=== PATIENT | male | born 1980 | race Caucasian/White ===

== ENCOUNTER 2016-09-24 19:55 | Emergency (ER) | payer MEDICAID ==
[2016-09-24 21:05] VITALS: BP 130/74
[2016-09-24] MEDS ORDERED: Lidocaine 1% 20 ML MDV INJECT ONE (21:11)
[2016-09-24] MEDS ORDERED: Bacitracin Oint 1 GM U/D Packet TOP ONE (21:11)
--- NOTE | 2016-09-24 21:47 | EDM.PDOC ---
[id number]: CUT LEFT THUMB ON BLADE Time Seen by Provider: 09/24/16 21:20 Source of Information: Reports: Patient History Limitations: Reports: No Limitations - History of Present Illness INITIAL COMMENTS - FREE TEXT/NARRATIVE: 35-year-old male with a left hand laceration from a sharpened lawnmower blade. He has a laceration that starts at the base of the palmar aspect of the thumb over the thenar area and into the center of the hand. Total length of 6 cm. It is through into the subcutaneous tissue but no deep structures are involved. Onset: Today Duration: Hour(s): (Within the last hour) Location: Reports: Upper Extremity, Left Associated Symptoms: Reports: No Other Symptoms Left Hand Pain Score (Numeric/FACES): 4 - Related Data Allergies Allergy/AdvReac Type Severity Reaction Status Date / Time No Known Allergies Allergy Verified 11/08/15 18:23 Home Meds: Home Meds NK [No Known Home Meds] 11/08/15 [History] Past Medical History - Past Health History Medical/Surgical History: Denies Medical/Surgical History Social & Family History - Tobacco Use Smoking Status *Q: Never Smoker - Caffeine Use Caffeine Use: Reports: None - Alcohol Use Days Per Week of Alcohol Use: 1 Number of Drinks Per Day: 1 Total Drinks Per Week: 1 - Recreational Drug Use Recreational Drug Use: No Drug Use in Last 12 Months: No ED ROS GENERAL - Review of Systems Review Of Systems: ROS reveals no pertinent complaints other than HPI. (No other complaints or injury) ED EXAM, SKIN/RASH Exam: See Below Exam Limited By: No Limitations General Appearance: Alert, No Apparent Distress Respiratory/Chest: No Respiratory Distress Extremities: Other (Exam is otherwise limited to the left hand. The patient has a 6 cm laceration extending from the palmar base of the thumb into the palm. Distal CMS is intact.) Course - Vital Signs Last Recorded V/S: Last Vital Signs Temp 97.0 F 09/24/16 21:10 Pulse 68 09/24/16 21:10 Resp 14 09/24/16 21:10 BP 130/74 09/24/16 21:10 Pulse Ox 96 09/24/16 21:10 - Orders/Labs/Meds Meds: Medications Discontinued Medications Generic Name Dose Route Start Last Admin Trade Name Freq PRN Reason Stop Dose Admin Bacitracin 1 dose 09/24/16 21:11 09/24/16 21:42 Bacitracin Oint 1 Gm TOP 09/24/16 21:12 1 dose ONETIME ONE Administration Lidocaine HCl 20 ml 09/24/16 21:11 09/24/16 21:42 Xylocaine 1% INJECT 09/24/16 21:12 20 ml ONETIME ONE Administration - Re-Assessments/Exams Free Text/Narrative Re-Assessment/Exam: 09/24/16 21:45 The area was infiltrated with 6 mL of 1% lidocaine. Saline and Hibiclens were used to thoroughly clean the wound, 9 4-0 Ethilon sutures were used to close the laceration. Topical bacitracin and bandages were applied and the sutures can be removed in 9 days. Departure - Departure Time of Disposition: 21:56 Disposition: Home, Self-Care 01 Condition: Good Clinical Impression: Laceration of hand Qualifiers: Encounter type: initial encounter Foreign body presence: without foreign body Laterality: left Qualified Code(s): S61.412A - Laceration without foreign body of left hand, initial encounter - Discharge Information Instructions: Stab Wound Referrals: PCP,None [Primary Care Provider] - Forms: ED Department Discharge Care Plan Goals: Keep wound covered and clean while healing. Sutures can be removed in 9 days, return sooner if concerns of infection or not healing satisfactorily.
== END 2016-09-24 21:56 | disposition home or self-care (01) ==
LOC: JP.ED 19:55
DX: S61.412A Laceration without foreign body of left hand, initial encounter (principal); W31.89XA Contact with other specified machinery, initial encounter
CPT/HCPCS: 12002; 99283-25

== ENCOUNTER 2017-01-11 15:02 | Emergency (ER) | payer MEDICAID ==
[2017-01-11] MEDS ORDERED: cefTRIAXone 1 GM, Lidocaine 1% 2.1 ML IM ONE ×2 (15:26)
[2017-01-11] MEDS ORDERED: Ketorolac 60 MG/2 ML SDV IM ONE (15:27)
--- NOTE | 2017-01-11 15:36 | EDM.PDOC ---
ED HPI GENERAL MEDICAL PROBLEM - General Chief Complaint: Lower Extremity Injury/Pain Stated Complaint: R KNEE PAIN / REDNESS / SWELLING Time Seen by Provider: 01/11/17 15:31 Source of Information: Reports: Patient History Limitations: Reports: No Limitations - History of Present Illness INITIAL COMMENTS - FREE TEXT/NARRATIVE: 3 or 4 days ago the pt was poked by a nail over the knee cap. The nail did not appear to go in a lomng ways. He was fine until the last 36 hours and now it is getting red over the knee cap and it hurts to move and stand on it. Onset: Gradual, Other (over the last 36 hours. ) Duration: Hour(s): Location: Reports: Lower Extremity, Right Associated Symptoms: Reports: Other ( alot of pain with waking. ) - Related Data Allergies Allergy/AdvReac Type Severity Reaction Status Date / Time No Known Allergies Allergy Verified 11/08/15 18:23 Home Meds: Home Meds NK [No Known Home Meds] 11/08/15 [History] Past Medical History - Past Health History Medical/Surgical History: Denies Medical/Surgical History Social & Family History - Tobacco Use Smoking Status *Q: Never Smoker - Caffeine Use Caffeine Use: Reports: None - Alcohol Use Days Per Week of Alcohol Use: 1 Number of Drinks Per Day: 1 Total Drinks Per Week: 1 - Recreational Drug Use Recreational Drug Use: No Drug Use in Last 12 Months: No Review of Systems - Review of Systems Review Of Systems: See Below Constitutional: Reports: No Symptoms Eyes: Reports: No Symptoms, Other Ears: Reports: No Symptoms Nose: Reports: No Symptoms Mouth/Throat: Reports: No Symptoms Respiratory: Reports: No Symptoms Cardiovascular: Reports: No Symptoms GI/Abdominal: Reports: No Symptoms Genitourinary: Reports: No Symptoms Musculoskeletal: Reports: Other ( pain in the left knee) Skin: Reports: No Symptoms ED EXAM, GENERAL - Physical Exam Exam: See Below Free Text/Narrative:: Pt has a red inflamed rt knee which seemes to be tender over the top of the knee cap. It is hot. Exam Limited By: No Limitations General Appearance: Alert, Anxious Ears: Normal TMs Nose: Normal Inspection Throat/Mouth: Normal Inspection Head: Atraumatic Neck: Normal Inspection Respiratory/Chest: No Respiratory Distress Cardiovascular: Regular Rate, Rhythm GI/Abdominal: Soft, Non-Tender (Male) Exam: Deferred Rectal (Males) Exam: Deferred Back Exam: Normal Inspection Extremities: Other ( rt knee is red over the knee cap It is tender. The knee is painful when it is bent. The knee is not tender laterally or behind the knee. ) Neurological: Alert, Oriented, Normal Cognition Course - Vital Signs Last Recorded V/S: Last Vital Signs Temp 37.1 C 01/11/17 15:28 Pulse 99 01/11/17 15:28 Resp 14 01/11/17 15:28 BP 115/74 01/11/17 15:28 Pulse Ox 98 01/11/17 15:28 - Orders/Labs/Meds Meds: Medications Discontinued Medications Generic Name Dose Route Start Last Admin Trade Name Freq PRN Reason Stop Dose Admin Ceftriaxone Sodium 1 gm/ 0 gm 01/11/17 15:26 Lidocaine HCl 2.1 ml IM 01/11/17 15:27 ONETIME ONE Ketorolac Tromethamine 60 mg 01/11/17 15:27 Toradol IM 01/11/17 15:28 ONETIME ONE - Re-Assessments/Exams Free Text/Narrative Re-Assessment/Exam: 01/11/17 15:38 pt was given rocephen 1 gm im and norco for pain Departure - Departure Time of Disposition: 15:38 Disposition: Home, Self-Care 01 Condition: Fair Clinical Impression: Cellulitis of right knee - Discharge Information Referrals: PCP,None [Primary Care Provider] - Care Plan Goals: soak in a tub, or moist warm packs to the knee. augmentin 875 1 tab bid, norco 5/325 q6h prn for pain, motrin 600mg tid, appt with orth on fri and recheck to be sure it is improving.
[2017-01-11 15:39] VITALS: BP 115/74
== END 2017-01-11 16:10 | disposition home or self-care (01) ==
LOC: JP.ED 15:02
DX: L03.115 Cellulitis of right lower limb (principal)
CPT/HCPCS: 96372; 99283; J0696; J1885